=== PATIENT | male | born 2000 | race African-American/Black ===

== ENCOUNTER 2022-01-12 14:08 | Emergency (ER) | payer BC ==
[~2022-01-12] VITALS: Ht 175.3 cm; Wt 83.0 kg
[2022-01-12 14:38] VITALS: BP 105/84
[2022-01-12] MEDS ORDERED: LIDOCAINE HCL 1% 20ML VIAL (Pyxis) INJ INFIL ONE (15:30)
[2022-01-12] MEDS ORDERED: TETANUS, DIPHTHERIA, PERTUSSIS VAC/PF 0.5ML (>10YR OLD) IM ONE (15:45)
[2022-01-12] MEDS ORDERED: ACET-2708 MT (16:32)
[2022-01-12] MEDS ORDERED: BACITRACIN ZINC OINT UDPKT TOP ONE (16:45)
== END 2022-01-12 16:53 | disposition home or self-care (01) ==
LOC: ER 14:08
DX: S91.312A Laceration without foreign body, left foot, initial encounter (principal); W26.8XXA Contact with other sharp object(s), not elsewhere classified, initial encounter; Y93.01 Activity, walking, marching and hiking; Y92.89 Other specified places as the place of occurrence of the external cause
CPT/HCPCS: 12001; 90471; 90715; 99283

== ENCOUNTER 2022-01-24 12:03 | Emergency (ER) | payer BC ==
[~2022-01-24] VITALS: Ht 175.3 cm; Wt 84.0 kg
[~2022-01-24 12:03] MED LIST: ACET-2708 MT
[2022-01-24 12:15] VITALS: BP 110/70
== END 2022-01-24 12:57 | disposition home or self-care (01) ==
LOC: ER 12:03
DX: Z48.02 Encounter for removal of sutures (principal)
CPT/HCPCS: 99281